=== PATIENT | female | born 1965 | race Two or more races ===

== ENCOUNTER 2016-07-10 12:02 | Emergency (ER) | payer SELFPAY ==
[~2016-07-10] VITALS: Ht 152.4 cm; Wt 90.7 kg
[2016-07-10 18:16] VITALS: BP 142/74
== END 2016-07-10 20:22 | disposition home or self-care (01) ==
LOC: ER 12:02
DX: J20.9 Acute bronchitis, unspecified (principal)
CPT/HCPCS: 82962; 93005

== ENCOUNTER 2016-09-10 12:32 | Emergency (ER) | payer MEDICAID ==
[~2016-09-10] VITALS: Ht 152.4 cm; Wt 104.3 kg
[2016-09-10 13:33] VITALS: BP 143/68
== END 2016-09-10 14:59 | disposition home or self-care (01) ==
LOC: ER 12:32
DX: S60.222A Contusion of left hand, initial encounter (principal); S00.83XA Contusion of other part of head, initial encounter; W19.XXXA Unspecified fall, initial encounter; Y93.01 Activity, walking, marching and hiking; Y99.8 Other external cause status; Y92.89 Other specified places as the place of occurrence of the external cause
CPT/HCPCS: 73130

== ENCOUNTER 2019-05-21 11:06 | Emergency (ER) | payer MEDICAID ==
[~2019-05-21] VITALS: Ht 165.1 cm; Wt 99.8 kg
[2019-05-21 11:33] VITALS: BP 125/70
[2019-05-21] MEDS ORDERED: IBUPROFEN 800 MG TAB PO ONE (13:15)
== END 2019-05-21 13:36 | disposition home or self-care (01) ==
LOC: ER 11:06
DX: S16.1XXA Strain of muscle, fascia and tendon at neck level, initial encounter (principal); M25.512 Pain in left shoulder; R51 Headache; V43.52XA Car driver injured in collision with other type car in traffic accident, initial encounter; Y93.89 Activity, other specified; Y92.89 Other specified places as the place of occurrence of the external cause; Y99.8 Other external cause status
CPT/HCPCS: 70450; 72040

== ENCOUNTER 2020-04-29 10:00 | Emergency (ER) | payer MEDICAID ==
[~2020-04-29] VITALS: Ht 152.4 cm; Wt 90.7 kg
[2020-04-29 10:21] VITALS: BP 119/76
== END 2020-04-29 10:10 | disposition home or self-care (01) ==
LOC: ER 10:00
DX: U07.1 COVID-19 (principal); J40 Bronchitis, not specified as acute or chronic; E11.9 Type 2 diabetes mellitus without complications
CPT/HCPCS: 36415; 71045; 87426

== ENCOUNTER 2021-09-17 07:13 | Inpatient (IN) | payer MEDICAID ==
[~2021-09-17] VITALS: Ht 152.4 cm; Wt 47.0 kg
[2021-09-17 09:09] LABS: Urine Bacteria NONE SEEN /hpf (None Seen); Urine Blood Negative /uL (Negative); Urine Specific Gravity 1.034 (1.001-1.035); Urine WBC 1 /hpf (0 - 5)
[2021-09-17 10:36] LABS: Basophils # (auto) 0.1 10 ^3/uL (0-0.2); Basophils % (auto) 0.7 % (0.0-2.0); Eosinophils # (auto) 0.7 10 ^3/uL (0-0.8); Eosinophils % (auto) 5.6 % (0.0-7.0); Hematocrit 37.5 % (36.0-46.0); Hemoglobin 12.6 g/dL (12.2-16.2); Lymphocytes # (auto) 2.4 10 ^3/uL (0.4-5.4); Lymphocytes % (auto) 20.3 % (10.0-50.0); Mean Corpuscular Hemoglobin 30.2 pg (28.0-32.0); Mean Corpuscular Hgb Conc. 33.7 g/dL (32.0-36.0); Mean Corpuscular Volume 89.5 fL (80.0-100.0); Monocytes # (auto) 0.7 10 ^3/uL (0-1.3); Neutrophils # (auto) 7.9 10 ^3/uL (1.6-8.6); Neutrophils % (auto) 67.4 % (37.0-80.0); Red Blood Cells 4.19 10^6/uL (4.0-5.20); Red Cell Distribution Width 13.1 % (11.8-14.3); White Blood Cell 11.7 10^3/uL (4.4-10.8)
[2021-09-17 10:53] LABS: Albumin 3.2 g/dL (3.4-5.0); Calcium 9.1 mg/dL (8.5-10.1); Potassium 4.3 mmol/L (3.5-5.1)
[2021-09-17 10:55] LABS: BUN/Creatinine Ratio 21.4
[2021-09-17 10:57] LABS: Bilirubin, Total 0.4 mg/dL (0.2-1.0); Total Protein 7.6 g/dL (6.4-8.2)
[2021-09-17] MEDS ORDERED: metroNIDAZOLE 500MG/100ML 100 ML IV ONE (12:30)
[2021-09-17] MEDS ORDERED: cefTRIAXone 1GM/50ML D5W 50 ML IV ONE (12:30)
[2021-09-17] MEDS ORDERED: DEXTROSE (50%) 50ML SYRG IV PRN (14:45)
[2021-09-17] MEDS ORDERED: ONDANSETRON HCL 4 MG/2 ML VIAL IV PRN (14:45)
[2021-09-17] MEDS ORDERED: MORPHINE SULFATE INJ 2 MG/ml SYRG IV PRN (14:45)
[2021-09-17] MEDS: SODIUM CHLORIDE 0.9% 1,000 ML IV SCH ×2 (15:30→23:00)
[2021-09-17 15:48] LABS: Cholesterol 163 mg/dL (< 200); HDL Cholesterol 36 mg/dL (40-59); LDL Cholesterol 106 mg/dL (< 100); Triglycerides 183 mg/dL (< 150)
[2021-09-17] MEDS: ACCU-CHEK COMFORT CURVE STRIP VI SCH (17:40)
[2021-09-17] MEDS: InsuLIN REG 1unit/0.01ml Soln (100units/ml) SC SCH (18:00)
[2021-09-17] MEDS: metroNIDAZOLE 500MG/100ML 100 ML IV SCH (21:55)
[2021-09-18 01:27] VITALS: BP 110/72
[2021-09-18] MEDS: ACCU-CHEK COMFORT CURVE STRIP VI SCH ×4 (02:00→17:51)
[2021-09-18] MEDS: InsuLIN REG 1unit/0.01ml Soln (100units/ml) SC SCH ×4 (02:00→17:51)
[2021-09-18 05:00] VITALS: BP 111/63
[2021-09-18] MEDS: metroNIDAZOLE 500MG/100ML 100 ML IV SCH ×3 (06:11→21:52)
[2021-09-18 09:22] VITALS: BP 114/68
[2021-09-18] MEDS: SODIUM CHLORIDE 0.9% 1,000 ML IV SCH ×2 (09:36→13:56)
[2021-09-18] MEDS: cefTRIAXone 1GM/50ML D5W 50 ML IV SCH (09:36)
[2021-09-18 12:47] VITALS: BP 132/67
[2021-09-18 16:36] VITALS: BP 122/70
[2021-09-18] MEDS ORDERED: ERTU15TA PO (16:51)
[2021-09-18] MEDS ORDERED: METF-370 PO (16:51)
[2021-09-18] MEDS ORDERED: ATOR40TA52 PO (16:51)
[2021-09-18] MEDS ORDERED: INSU100I44 SC (16:51)
[2021-09-18 21:11] VITALS: BP 109/73
[2021-09-19] MEDS: ACCU-CHEK COMFORT CURVE STRIP VI SCH ×2 (01:27→05:38)
[2021-09-19] MEDS: SODIUM CHLORIDE 0.9% 1,000 ML IV SCH (02:05)
[2021-09-19 05:00] VITALS: BP 139/76
[2021-09-19] MEDS: metroNIDAZOLE 500MG/100ML 100 ML IV SCH (05:37)
[2021-09-19] MEDS: InsuLIN REG 1unit/0.01ml Soln (100units/ml) SC SCH ×2 (05:38)
[2021-09-19 08:06] LABS: Basophils # (auto) 0 10 ^3/uL (0-0.2); Basophils % (auto) 0.5 % (0.0-2.0); Eosinophils # (auto) 0.5 10 ^3/uL (0-0.8); Eosinophils % (auto) 5.8 % (0.0-7.0); Hematocrit 38.2 % (36.0-46.0); Hemoglobin 12.9 g/dL (12.2-16.2); Lymphocytes % (auto) 23.8 % (10.0-50.0); Mean Corpuscular Hemoglobin 30.5 pg (28.0-32.0); Mean Corpuscular Hgb Conc. 33.8 g/dL (32.0-36.0); Mean Corpuscular Volume 90.3 fL (80.0-100.0); Monocytes # (auto) 0.5 10 ^3/uL (0-1.3); Monocytes % (auto) 6.1 % (0.0-12.0); Neutrophils # (auto) 5.3 10 ^3/uL (1.6-8.6); Neutrophils % (auto) 63.8 % (37.0-80.0); Red Blood Cells 4.23 10^6/uL (4.0-5.20); Red Cell Distribution Width 13.3 % (11.8-14.3); White Blood Cell 8.3 10^3/uL (4.4-10.8)
[2021-09-19 08:26] LABS: BUN/Creatinine Ratio 15.7; Calcium 8.7 mg/dL (8.5-10.1); Potassium 3.7 mmol/L (3.5-5.1)
[2021-09-19 09:00] VITALS: BP 130/54
[2021-09-19] MEDS ORDERED: LEVO500T31 PO (11:02)
[2021-09-19] MEDS ORDERED: METR500T PO (11:02)
[2021-09-19] MEDS: cefTRIAXone 1GM/50ML D5W 50 ML IV SCH (11:07)
[2021-09-19 12:31] VITALS: BP 130/54
[2021-09-19 13:00] VITALS: BP 148/75
== END 2021-09-19 14:10 | disposition home or self-care (01) | DRG 244 ==
LOC: ER 07:13 → OVERFLOW 14:43 → WEST WING 21:21
PROVIDERS: ADMIT Registered Nurse; ATTEND Internal Medicine
DX: K57.32 Diverticulitis of large intestine without perforation or abscess without bleeding (principal); E11.65 Type 2 diabetes mellitus with hyperglycemia; E66.01 Morbid (severe) obesity due to excess calories; Z90.49 Acquired absence of other specified parts of digestive tract; Z68.20 Body mass index [BMI] 20.0-20.9, adult; Z20.822 Contact with and (suspected) exposure to COVID-19
CPT/HCPCS: 36415; 74176; 80048; 80053; 80061; 81001; 81025; 82962; 83036; 83605; 83690; 85025; 87040; 87493; 96365; G0378; J0696; J3490

== ENCOUNTER 2022-08-26 14:32 | Emergency (ER) | payer MEDICAID ==
[~2022-08-26] VITALS: Ht 152.4 cm; Wt 105.8 kg
[~2022-08-26 14:32] MED LIST: ATOR40TA52 PO; ERTU15TA PO; INSU100I44 SC; LEVO500T31 PO; METF-370 PO; METR500T PO
[2022-08-26] MEDS ORDERED: ASPirin 81 mg TAB PO ONE (15:00)
[2022-08-26 15:18] LABS: Basophils # (auto) 0.1 10 ^3/uL (0-0.2); Basophils % (auto) 0.4 % (0.0-2.0); Eosinophils # (auto) 0.5 10 ^3/uL (0-0.8); Eosinophils % (auto) 4.4 % (0.0-7.0); Hematocrit 39.1 % (36.0-46.0); Lymphocytes # (auto) 3.4 10 ^3/uL (0.4-5.4); Lymphocytes % (auto) 28.7 % (10.0-50.0); Mean Corpuscular Hemoglobin 29.9 pg (28.0-32.0); Mean Corpuscular Hgb Conc. 33.4 g/dL (32.0-36.0); Mean Corpuscular Volume 89.7 fL (80.0-100.0); Monocytes # (auto) 0.8 10 ^3/uL (0-1.3); Monocytes % (auto) 6.4 % (0.0-12.0); Neutrophils # (auto) 7.1 10 ^3/uL (1.6-8.6); Neutrophils % (auto) 60.1 % (37.0-80.0); Red Blood Cells 4.36 10^6/uL (4.0-5.20); Red Cell Distribution Width 13.3 % (11.8-14.3); White Blood Cell 11.8 10^3/uL (4.4-10.8)
[2022-08-26 15:48] LABS: Albumin 3.6 g/dL (3.4-5.0); BUN/Creatinine Ratio 23.6 (10.0-20.0); Bilirubin, Total 0.3 mg/dL (0.2-1.0); Calcium 9.1 mg/dL (8.5-10.1); Magnesium 2.2 mg/dL (1.6-2.6); Total Protein 7.2 g/dL (6.4-8.2)
[2022-08-26 18:50] VITALS: BP 118/64
== END 2022-08-26 19:03 | disposition home or self-care (01) ==
LOC: ER 14:32
DX: R07.2 Precordial pain (principal); J45.909 Unspecified asthma, uncomplicated; E11.9 Type 2 diabetes mellitus without complications; E78.5 Hyperlipidemia, unspecified; I10 Essential (primary) hypertension; Z90.49 Acquired absence of other specified parts of digestive tract; Z98.890 Other specified postprocedural states
CPT/HCPCS: 36415; 71046; 80053; 83735; 84484; 85025; 85379; 93005

== ENCOUNTER 2023-06-21 06:59 | Emergency (ER) | payer MEDICAID ==
[~2023-06-21] VITALS: Ht 157.5 cm; Wt 103.2 kg
[~2023-06-21 06:59] MED LIST changes: -INSU100I44 SC; +INSU100I54 SC; +NITR-87 PO
[2023-06-21 07:26] VITALS: BP 136/76; PULSE 91
[2023-06-21] MEDS ORDERED: GUAI100S6 PO (08:07)
[2023-06-21] MEDS ORDERED: AZIT-43 PO (08:07)
[2023-06-21] MEDS ORDERED: BENZ100C97 PO (08:07)
[2023-06-21] MEDS ORDERED: GUAISYP6 PO (08:13)
[2023-06-21 08:18] VITALS: RESP 16; O2SAT 96
== END 2023-06-21 08:21 | disposition home or self-care (01) ==
LOC: ER 06:59
DX: J20.9 Acute bronchitis, unspecified (principal); R07.89 Other chest pain; I10 Essential (primary) hypertension; E11.9 Type 2 diabetes mellitus without complications; E78.5 Hyperlipidemia, unspecified; J45.909 Unspecified asthma, uncomplicated; Z90.49 Acquired absence of other specified parts of digestive tract; Z79.2 Long term (current) use of antibiotics; Z79.4 Long term (current) use of insulin; Z79.899 Other long term (current) drug therapy
CPT/HCPCS: 71046

== ENCOUNTER 2025-02-19 07:08 | Emergency (ER) | payer MEDICAID ==
[~2025-02-19] VITALS: Ht 152.4 cm; Wt 98.2 kg
[~2025-02-19 07:08] MED LIST changes: +AZIT-43 PO; +BENZ100C97 PO; +GUAISYP6 PO
[2025-02-19] MEDS ORDERED: IBUP-1456 PO (07:37)
[2025-02-19] MEDS ORDERED: AUG875T PO (07:37)
[2025-02-19 07:40] VITALS: BP 145/99; PULSE 72; RESP 18; TEMP 98.2; O2SAT 97
--- NOTE | 2025-02-19 07:48 | ED.PDOC ---
Eye-HPI HPI Comments A 59-YEAR-OLD FEMALE PRESENTS TO ER FOR LEFT EAR PAIN. PT STATES SHE STARTED HAVING LEFT EAR PAIN LAST NIGHT. EATING INCREASES LEFT EAR PAIN. PT DENIES FEVER, SOB, CHEST PAIN, HEADACHE, DIZZINESS, NAUSEA, VOMITING AND OTHER COMPLAINTS. NO OTHER SYMPTOMS REPORTED AT THIS TIME OF CARE. Chief Complaint: Earache Time Seen by MD: 07:17 Primary Care Provider: TRINIDAD SIERRA Reviewed Notes: Nurses Notes, Medications, Allergies Allergies: Coded Allergies: NO KNOWN ALLERGIES (Unverified , 01/11/16) Home Meds Active Scripts Ibuprofen (Ibuprofen) 800 Mg Tab, 1 TAB PO TID, #30 TAB Prov:SHERITA JESUS 02/19/25 Amoxicillin & Pot Clavulanate (AUGMENTIN TABLET) 875 Mg Tb, 875 MG PO BID, #20 TAB Prov:SHERITA JESUS 02/19/25 Benzonatate (Benzonatate) 100 Mg Cap, 1 CAP PO TID PRN, #30 CAP Prov:GAVIOTA LEMUS 06/21/23 Azithromycin (Azithromycin) 250 Mg Tab, 250 MG PO DAILY MDD 500 for 5 Days, #6 TAB 0 Refills 2 TABLETS ORALLY ON DAY ONE, THEN 1 TABLET ORALLY DAILY FOR 4 DAYS Prov:GAVIOTA LEMUS 06/21/23 Nitrofurantoin Monohydrate Mac (Macrobid) 100 Mg Cap, 100 MG PO BID for 7 Days, #14 CAP Prov:TARIQ MOY MD 11/17/22 Metronidazole (Flagyl) 500 Mg Tab, 500 MG PO TID for 10 Days, #30 TAB Prov:CADY ARTEAGA MD 09/19/21 Levofloxacin (Levaquin) 500 Mg Tab, 500 MG PO DAILY for 10 Days, #10 TAB Prov:CADY ARTEAGA MD 09/19/21 Reported Medications Guaifenesin-Codeine (Guaifenesin Ac) Ac Syp, 5 ML PO Q6HPRN PRN, #120 ML 06/21/23 Insulin Lispro (Insulin Lispro Kwikpen) 100 Unit/Ml Inj, 14 UNIT SC HS, INJ 09/18/21 Atorvastatin Calcium (ATORVASTATIN CALCIUM) 40 Mg Tab, 1 TAB PO QPM, #90 TAB 3 Refills 09/18/21 Ertugliflozin l-Pyroglutamic A (Steglatro) 15 Mg Tab, 15 MG PO DAILY, TAB 09/18/21 Metformin Hydrochloride (Metformin Hcl) 500 Mg Tab, 1000 MG PO IBID for 30 Days, MG 09/18/21 Information Source: Patient Mode of Arrival: Ambulatory Timing: Days Duration: Since onset, Days Prehospital treatment: None Quality: Pain, Red Lids: Normal Conjunctiva: Normal Cornea: Normal Pupils: Normal EOM: Normal Fundus: Normal Slit lamp exam: Normal Mouth: Normal ENT Ear Exam: Red, Bulging, Dull Nose: Normal Sinuses: Normal Oropharynx: Normal Onset: Spontaneous Last Tetanus: UTD Modifying factors: Chewing Associated signs and symptoms: Ear Pain Past Medical History PAST MEDICAL HISTORY: Asthma, DM, High Lipids, HTN Surgical History: Cholecystectomy, [employer]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 History Family History Family History: Reviewed,noncontributory to illness Social History Smoker: Non-Smoker Alcohol: Denies ETOH Use Drugs: Denies Drug Use Lives In: Home Constitutional: denies: chills, diaphoresis, fatigue, fever, malaise, sweats, weakness, others EENTM: reports: ear pain, ear ringing; denies: blurred vision, double vision, ear bleeding, ear discharge, ear drainage, eye pain, eye redness, hearing loss, mouth pain, mouth swelling, nasal discharge, nose bleeding, nose congestion, nose pain, photophobia, tearing, throat pain, throat swelling, voice changes, others Respiratory: denies: cough, hemoptysis, orthopnea, SOB at rest, shortness of breath, SOB with excertion, stridor, wheezing, others Cardiovascular: denies: chest pain, dizzy spells, diaphoresis, Dyspnea on exertion, edema, irregular heart beat, left arm pain, lightheadedness, palpitations, PND, syncope, others Gastrointestinal: denies: abdomen distended, abdominal pain, blood streaked bowels, constipated, diarrhea, dysphagia, difficulty swallowing, hematemesis, melena, nausea, poor appetite, poor fluid intake, rectal bleeding, rectal pain, vomiting, others Genitourinary: denies: abnormal vagina bleeding, burning, dyspareunia, dysuria, flank pain, frequency, hematuria, incontinence, pain, , vagina discharge, urgency, others Neurological: denies: dizziness, fainting, headache, left sided numbness, left sided weakness, numbness, paresthesia, pre-existing deficit, right sided numbness, right sided weakness, seizure, speech problems, tingling, tremors, weakness, others Musculoskeletal: denies: back pain, gout, joint pain, joint swelling, muscle pain, muscle stiffness, neck pain, others Integumetry: denies: bruises, change in color, change in hair/nails, dryness, laceration, lesions, lumps, rash, wounds, others Hematologic/Lymphatic: denies: anemia, blood clots, easy bleeding, easy bruising, swollen glands, others Endocrine: denies: excessive hunger, excessive sweating, excessive thirst, excessive urination, flushing, intolerance to cold, intolerance to heat, unexplained weight gain, unexplained weight loss, others Psychiatric: denies: anxiety, bipolar disorder, depression, hopeless, panic disorder, schizophrenia, sleepless, suicidal, others All Other Systems: Reviewed and Negative Physical Exam General Appearance: No Apparent Distress, Obese HEENT: Normal ENT Inspection, PERRL/EOMI, Pharynx Normal, TM Abnormal (L) (ERYTHEMA AND DULL WITH EFFUSION OF LEFT TM, NO BLEEDING AND BLOOD CLOTS. ) Neck: Full Range of Motion, Non-Tender, Normal, Normal Inspection Respiratory: Chest Non-Tender, Lungs Clear, No Accessory Muscle Use, No Respiratory Distress, Normal Breath Sounds Cardiovascular: No Edema, No JVD, No Murmur, No Gallop, Normal Peripheral Pulses, Regular Rate/Rhythm Breast Exam: Deferred Gastrointestinal: No Organomegaly, Non Tender, No Pulsatile Mass, Normal Bowel Sounds, Soft Genitalia: Deferred Pelvic: Deferred Rectal: Deferred Extremities: No calf tenderness, Normal capillary refill, Normal inspection, Normal range of motion, Non-tender, No pedal edema Musculoskeletal : Apperance: Normal Neurologic: Alert, cook fast food II-XII nml as Tested, No Motor Deficits, Normal Affect, Normal Mood, No Sensory Deficits Cerebellar Function: Normal Reflexes: Normal Skin: Dry, Normal Color, Warm Peripheral Pulses: 2+ carotid (R), 2+ carotid (L) Lymphatic: No Adenopathy Was a procedure done? Was a procedure done?: No EENT DIFF Eye: N/A, Other Ear: Otitis Externa, Otitis Media, Pharyngitis X-Ray, Labs, Meds, VS Vital Signs Date Time Temp Pulse Resp B/P (MAP) Pulse Ox O2 Delivery O2 Flow Rate FiO2 02/19/25 07:40 98.2 72 18 145/99 (114) 97 98.2 02/19/25 07:09 98.2 72 18 145/99 97 98.2 Time of 1ST Reevaluation: 07:46 Reevaluation 1ST: Improved Patient Education/Counseling: Diagnosis, Treatment, Need For Follow Up Family Education/Counseling: Diagnosis, Treatment, Need For Follow Up Medical Screening: No EMC Exist At This Time SEPSIS Sepsis Screen Date sepsis recognized/suspect: Feb 19, 2025 Time Sepsis recognized/suspect: 711 Recent Procedure: No On Antibiotic Therapy: No Respiratory Rate >20: No Heart Rate >90: No Temp<36 C (96.8 F) or >38.3 C: No SBP <90 or MAP <65 mmHG: No New Acute Mental Status Change: No Is the patient on CPAP, BIPAP,: No Vital Signs Date Time Temp Pulse Resp B/P (MAP) Pulse Ox O2 Delivery O2 Flow Rate FiO2 02/19/25 07:40 98.2 72 18 145/99 (114) 97 98.2 02/19/25 07:09 98.2 72 18 145/99 97 98.2 Departure 1 Departure Time of Disposition: 07:46 Impression: Primary Impression: Acute otitis media with effusion of left ear Disposition: 01 HOME / SELF CARE / HOMELESS Condition: Stable Additional Instructions: F/U PCP IN 2 DAYS RECHECK. IF CONDITION BECOME WORSE, RETURN TO [facility]. e-Prescriptions Ibuprofen (Ibuprofen) 800 Mg Tab 1 TAB PO TID, #30 TAB Prov: SHERITA JESUS 02/19/25 Amoxicillin & Pot Clavulanate (AUGMENTIN TABLET) 875 Mg Tb 875 MG PO BID, #20 TAB Prov: SHERITA JESUS 02/19/25 Discharged With: Self Critical Care Note Critical Care Time?: No Stability Stability form required: SHERITA Watters Feb 19, 2025 07:48
== END 2025-02-19 07:42 | disposition home or self-care (01) ==
LOC: ER 07:12
DX: H66.92 Otitis media, unspecified, left ear (principal); J45.909 Unspecified asthma, uncomplicated; I10 Essential (primary) hypertension; E11.9 Type 2 diabetes mellitus without complications; Z90.49 Acquired absence of other specified parts of digestive tract